=== PATIENT | female | born 1945 | race Two or more races ===

== ENCOUNTER 2023-10-29 07:02 | Day surgery (SDC) | payer OTHER | END 2023-10-29 11:10 | disposition home or self-care (01) | LOC: AMB-ENDOS 07:02 | PROVIDERS: ATTEND Surgery | DX: K63.5 Polyp of colon (principal); K57.30 Diverticulosis of large intestine without perforation or abscess without bleeding; D12.0 Benign neoplasm of cecum ==

== ENCOUNTER 2023-11-07 17:18 | Inpatient (IN) | payer OTHER ==
[~2023-11-07] VITALS: Ht 160 cm; Wt 70.3 kg
[2023-11-07] MEDS ORDERED: ASPIRIN81 MG (17:48)
[2023-11-07] MEDS ORDERED: TEMAZEPAM30 MG (17:48)
[2023-11-07] MEDS ORDERED: ATORVASTATIN CA40 MG (17:48)
[2023-11-07] MEDS ORDERED: QUETIAPINE FUM400 M1 (17:49)
[2023-11-07 19:22] LABS: HEMATOCRIT 36.4 % (36.0-45.00); HEMOGLOBIN 11.8 g/dL (12.0-15.00); MEAN CELL VOLUME 87.3 fL (80.00-100.00); MEAN CORPUSCULAR HEMOGLOBIN 28.4 pg (27.00-32.0); MEAN CORPUSCULAR HGB CONC 32.6 g/dl (32.0-36.0); PLATELET COUNT 306 K/uL (150-450); RED BLOOD COUNT 4.17 M/uL (4.00-6.00); RED CELL DISTRIBUTION WIDTH 12.9 % (11.5-14.5)
[2023-11-07 19:27] LABS: PH,URINE 7.5 (5.0-8.0); URINE APPEARANCE Clear; URINE BACTERIA 353.9 uL (0.0-1933); URINE BILIRRUBIN Negative (NEGATIVE); URINE BLOOD Moderate; URINE COLOR Yellow; URINE GLUCOSE Negative (NEGATIVE); URINE LEUKOCYTE Negative; URINE NITRATE Negative; URINE PROTEIN Negative (NEGATIVE); URINE RBC 10.1 uL (0.0-20.8); URINE UROBILINOGEN 0.2 E.U./dl
[2023-11-07 19:33] LABS: URINE EPITHELIAL CELLS 0.3 uL (0.0-38.8); URINE WBC 0.7 uL (0.0-23.2)
[2023-11-07 19:38] LABS: INR 1.01; PARTIAL THROMBOPLASTIN TIME 32.2 SECONDS (22.0-34.0); PROTHROMBIN TIME 10.6 SECONDS (9.0-11.5)
[2023-11-07 19:39] LABS: CREATININE SERUM 0.58 mg/dL (0.55-1.02); GFR 100.28; POTASSIUM 4.12 mEq/L (3.5-5.1)
[2023-11-08 00:25] LABS: ob POSITIVE (NEGATIVE)
[2023-11-08 02:19] LABS: HEMATOCRIT 39.9 % (36.0-45.00); HEMOGLOBIN 13.1 g/dL (12.0-15.00); MEAN CELL VOLUME 88.1 fL (80.00-100.00); MEAN CORPUSCULAR HEMOGLOBIN 28.9 pg (27.00-32.0); MEAN CORPUSCULAR HGB CONC 32.8 g/dl (32.0-36.0); PLATELET COUNT 355 K/uL (150-450); RED BLOOD COUNT 4.53 M/uL (4.00-6.00); RED CELL DISTRIBUTION WIDTH 13.2 % (11.5-14.5)
[2023-11-09 06:41] LABS: HEMATOCRIT 34.9 % (36.0-45.00); HEMOGLOBIN 11.6 g/dL (12.0-15.00); MEAN CELL VOLUME 87.2 fL (80.00-100.00); MEAN CORPUSCULAR HGB CONC 33.3 g/dl (32.0-36.0); PLATELET COUNT 316 K/uL (150-450); RED CELL DISTRIBUTION WIDTH 12.9 % (11.5-14.5)
== END 2023-11-09 11:55 | disposition home or self-care (01) | DRG 379 ==
LOC: ER 17:19 → SURG 20:56
PROVIDERS: General Practice; ADMIT Surgery; ATTEND Surgery
PROC: BW21YZZ Computerized Tomography (CT Scan) of Abdomen and Pelvis using Other Contrast (ICD-10-PCS; principal; 2023-11-07)
DX: K62.5 Hemorrhage of anus and rectum (principal); F03.90 Unspecified dementia, unspecified severity, without behavioral disturbance, psychotic disturbance, mood disturbance, and anxiety; D12.0 Benign neoplasm of cecum